=== PATIENT | female | born 1970 | race Caucasian/White ===

== ENCOUNTER 2017-06-27 15:56 | Emergency (ER) | payer MEDICAID, MEDICARE ==
[2017-06-27 16:27] VITALS: BP 124/87
--- NOTE | 2017-06-27 16:53 | UC ---
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 - History Of Current Complaint Chief Complaint: UCGeneralIllness Stated Complaint: CHEST CONGESTION,URINARY,FOOT & KNEE PAIN Time Seen by Provider: 06/27/17 16:18 Hx Obtained From: Patient Hx Last Menstrual Period: 01/01/14 ?: No Onset/Duration: Gradual Onset, Lasting Weeks, Still Present Timing: Constant Severity Initially: Moderate Severity Currently: Moderate Aggravating Factor(s): Nothing Alleviating Factor(s): Nothing - Allergies/Home Medications Allergies/Adverse Reactions: Allergies Allergy/AdvReac Type Severity Reaction Status Date / Time Sulfa Drugs Allergy Intermediate rapid Verified 06/27/17 16:28 heartbeat Gabapentin Allergy slowed Verified 06/27/17 16:28 responses Penicillins Allergy Unknown Verified 06/27/17 16:28 Reaction Details Green-coated pills AdvReac Vomiting, Uncoded 06/27/17 16:28 chills PMH/Surg Hx/FS Hx/Imm Hx Previously Healthy: No - 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 - Surgical History Surgical History: None - Family History Known Family History: Positive: None - Social History Occupation: Employed Full-time, Disabled Lives: Alone Alcohol Use: None Substance Use Type: None Smoking Status (MU): Light Every Day Tobacco Smoker Type: Cigarettes Amount Used/How Often: pt unsure Household Exposure Type: Cigarettes Review of Systems Constitutional: Negative Skin: Negative Eyes: Negative ENT: Sore Throat, Nasal Discharge, Sinus Congestion Respiratory: Cough Cardiovascular: Negative Gastrointestinal: Negative Genitourinary: Negative Motor: Negative Neurovascular: Negative Musculoskeletal: Arthralgia - knee and foot pain chronica Neurological: Negative Psychological: Negative Is Patient Immunocompromised?: No All Other Systems Reviewed And Are Negative: Yes Physical Exam Triage Information Reviewed: Yes Appearance: Well-Appearing, No Pain Distress, Well-Nourished Vital Signs: Initial Vital Signs Temp 98.4 F 06/27/17 16:19 Pulse 83 06/27/17 16:19 Resp 14 06/27/17 16:19 BP 124/87 06/27/17 16:19 Pulse Ox 98 06/27/17 16:19 Vital Signs Reviewed: Yes Eye Exam: Normal Eyes: Positive: Conjunctiva Clear ENT Exam: Normal ENT: Positive: Normal ENT inspection, Hearing grossly normal, Pharynx normal, Nasal congestion, TMs normal, Sinus tenderness, Uvula midline. Negative: Tonsillar swelling, Tonsillar exudate, Trismus, Muffled voice, Hoarse voice, Dental tenderness Dental Exam: Normal Neck exam: Normal Neck: Positive: Supple, Nontender, No Lymphadenopathy Respiratory Exam: Normal Respiratory: Positive: Chest non-tender, Lungs clear, Normal breath sounds, No respiratory distress, No accessory muscle use Cardiovascular Exam: Normal Cardiovascular: Positive: RRR, No Murmur, Pulses Normal, Brisk Capillary Refill Musculoskeletal Exam: Normal Musculoskeletal: Positive: Strength Intact, ROM Intact, No Edema Neurological Exam: Normal Neurological: Positive: Alert, Muscle Tone Normal Psychological Exam: Normal Skin Exam: Normal Complaint Female Dx - Course Course Of Treatment: work note until evaluated by orthopedic md, brooks haq follow with pcp this week - Differential Dx/Diagnosis Provider Diagnoses: Acute on chronic knee and foot pain, bronchitis, nicotine dependent Discharge - Discharge Plan Condition: Stable Disposition: HOME Prescriptions: Azithromycin TAB* [Zithromax TAB (Z-LENIN) 250 mg #6 tabs] 2 tab PO .TODAY, THEN 1 DAILY #1 lenin Fluticasone NASAL SPRAY 50MCG* [Flonase NASAL SPRAY 50MCG*] 2 spray BOTH NARES DAILY #1 btl Patient Education Materials: Sinusitis (ED) Forms: *Work Release Referrals: [facility] [place] [facility] [Outside] - 1 Week Marky THOMAS,Brayden Evans [Doctor of Podiatric Medicine] - As Soon As Possible
== END 2017-06-27 17:28 | disposition home or self-care (01) ==
LOC: UCCORT 15:56
DX: J40 Bronchitis, not specified as acute or chronic (principal); M79.673 Pain in unspecified foot; M25.569 Pain in unspecified knee; Z32.02 Encounter for pregnancy test, result negative; R09.81 Nasal congestion; J02.9 Acute pharyngitis, unspecified; G89.29 Other chronic pain; F17.210 Nicotine dependence, cigarettes, uncomplicated; Z88.2 Allergy status to sulfonamides; Z88.0 Allergy status to penicillin; Z88.8 Allergy status to other drugs, medicaments and biological substances
CPT/HCPCS: 81003; 84702; 99202; G0463

== ENCOUNTER 2017-07-08 11:48 | Emergency (ER) | payer MEDICARE ==
[2017-07-08 12:24] VITALS: BP 123/73
--- NOTE | 2017-07-08 13:05 | UC ---
Throat Pain/Nasal Chao HPI - HPI Summary HPI Summary: Pt c/o of nasal congestion and sinus pain and pressure. Also, c/o of bilateral ear "fullness" and itching - History of Current Complaint Chief Complaint: UCGeneralIllness Stated Complaint: EAR COMPLAINT Time Seen by Provider: 07/08/17 12:31 Hx Obtained From: Patient Hx Last Menstrual Period: 07/01/17 ?: No Onset/Duration: Gradual Onset, Lasting Days, Still Present Severity: Mild Pain Intensity: 0 Pain Scale Used: 0-10 Numeric Associated Signs & Symptoms: Positive: Sinus Discomfort - Epiglottits Risk Factors Epiglottis Risk Factors: Negative - Allergies/Home Medications Allergies/Adverse Reactions: Allergies Allergy/AdvReac Type Severity Reaction Status Date / Time Sulfa Drugs Allergy Intermediate rapid Verified 07/08/17 12:24 heartbeat Gabapentin Allergy slowed Verified 07/08/17 12:24 responses Penicillins Allergy Unknown Verified 07/08/17 12:24 Reaction Details Green-coated pills AdvReac Vomiting, Uncoded 07/08/17 12:24 chills Home Medications: Home Medications Pantoprazole TAB (NF) [Protonix TAB (NF)] 20 mg PO DAILY 07/08/17 [History Confirmed 07/08/17] ValACYclovir (*) [Valtrex 500 mg (*)] 500 mg PO DAILY 07/08/17 [History Confirmed 07/08/17] PMH/Surg Hx/FS Hx/Imm Hx Previously Healthy: Yes - Surgical History Surgical History: Yes Surgery Procedure, Year, and Place: toe surgery - Family History Known Family History: Positive: Cardiac Disease - Social History Occupation: Employed Full-time Lives: With Family Alcohol Use: None Substance Use Type: None Smoking Status (MU): Light Every Day Tobacco Smoker Type: Cigarettes Amount Used/How Often: pt unsure Have You Smoked in the Last Year: Yes Household Exposure Type: Cigarettes Review of Systems Constitutional: Negative Skin: Negative Eyes: Negative ENT: Ear Ache, Sinus Congestion, Sinus Pain/Tenderness Respiratory: Negative Cardiovascular: Negative Gastrointestinal: Negative Genitourinary: Negative Motor: Negative Neurovascular: Negative Musculoskeletal: Negative Neurological: Negative Psychological: Negative Is Patient Immunocompromised?: No All Other Systems Reviewed And Are Negative: Yes Physical Exam Triage Information Reviewed: Yes Appearance: Well-Appearing Vital Signs: Initial Vital Signs Temp 98 F 07/08/17 12:18 Pulse 83 07/08/17 12:18 Resp 16 07/08/17 12:18 BP 123/73 07/08/17 12:18 Pulse Ox 99 07/08/17 12:18 Vital Signs Reviewed: Yes Eye Exam: Normal ENT: Positive: Sinus tenderness Dental Exam: Normal Neck exam: Normal Respiratory Exam: Normal Cardiovascular Exam: Normal Abdominal Exam: Normal Musculoskeletal Exam: Normal Neurological Exam: Normal Psychological Exam: Normal Skin Exam: Normal Throat Pain/Nasal Course/Dx - Course Assessment/Plan: Pt reports that she has a history of chronic sinusitis. Pt requested a referral to DR. Best. - Differential Dx/Diagnosis Differential Diagnosis/HQI/PQRI: Otitis Media, Sinusitis, URI Provider Diagnoses: sinusitis Discharge - Discharge Plan Condition: Stable Disposition: HOME Prescriptions: DOXYcycline CAP(*) [DOXYcycline 100MG CAP(*)] 100 mg PO Q12H #14 cap Patient Education Materials: Sinusitis (ED) Referrals: [facility] [place] [facility] [Outside] Juan Best MD [Medical Doctor] - No Primary Care Phys,NOPCP [Primary Care Provider] - Additional Instructions: Please establish care with a local PCP as soon as possible. Additionally, we have provided a referral to an ENT specialist as you requested. You have requested that you be referred to Dr. Best.
== END 2017-07-08 12:55 | disposition home or self-care (01) ==
LOC: UCCORT 11:48
DX: J32.9 Chronic sinusitis, unspecified (principal); Z72.0 Tobacco use
CPT/HCPCS: 99212; G0463

== ENCOUNTER 2018-02-14 14:07 | Emergency (ER) | payer MEDICARE, OTHER ==
[2018-02-14 14:45] VITALS: BP 117/89
--- NOTE | 2018-02-14 14:52 | UC ---
Nausea/Vomiting/Diarrhea HPI - HPI Summary HPI Summary: 47 y/o female presents to the urgent care c/o NAUSEA , DIARRHEA FOR THREE DAYS. 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 SHE STATES THEY WERE NOT COOKED PROPERLY. ALSO C/O EAR PAIN , CHEST AND SINUS CONGESTION. PT SEEMS SOMEWHAT DISORIENTED AND SLOW TO ANSWER QUESTIONS - History of Current Complaint Chief Complaint: UCGeneralIllness Stated Complaint: WC - DIARRHEA,NAUSEA,STOMACH ACHE Time Seen by Provider: 02/14/18 14:50 Hx Obtained From: Patient Hx Last Menstrual Period: 02/13/18 ?: No Pain Intensity: 8 - Allergies/Home Medications Allergies/Adverse Reactions: Allergies Allergy/AdvReac Type Severity Reaction Status Date / Time gabapentin Allergy Unknown slowed Verified 02/14/18 15:14 responses Penicillins Allergy Unknown Unknown Verified 02/14/18 15:14 Reaction Details Sulfa (Sulfonamide Allergy rapid Verified 02/14/18 15:14 Antibiotics) heartbeat Green-coated pills AdvReac Vomiting, Uncoded 02/14/18 15:14 chills Home Medications: Home Medications Diclofenac Sodium 75 mg PO BID 02/14/18 [History Confirmed 02/14/18] PMH/Surg Hx/FS Hx/Imm Hx - Surgical History Surgical History: Yes Surgery Procedure, Year, and Place: toe surgery - Family History Known Family History: Positive: Cardiac Disease - Social History Alcohol Use: None Substance Use Type: None Smoking Status (MU): Former Smoker Type: Cigarettes Amount Used/How Often: pt unsure Have You Smoked in the Last Year: Yes Household Exposure Type: Cigarettes Physical Exam Vital Signs: Initial Vital Signs Temp 99.1 F 02/14/18 14:34 Pulse 88 02/14/18 14:34 Resp 18 02/14/18 14:34 BP 117/89 02/14/18 14:34 Pulse Ox 99 02/14/18 14:34 Naus/Vom/Diarrhea Course/Dx - Differential Dx/Diagnosis Differential Diagnoses - Female: Appendicitis, Gastroenteritis (Viral), Gastroenteritis (Bacterial), Vomiting, Diarrhea, Colitis, Dehydration Provider Diagnoses: 1- Acute gastroenteritis. 2- Nausea. 3- Acute Diarrhea. 4 -Acute bacterial sinusitis Condition At Discharge: Stable Discharge - Discharge Plan Condition: Stable Disposition: HOME Prescriptions: DOXYcycline CAP(*) [DOXYcycline 100MG CAP(*)] 100 mg PO BID #20 cap Fluticasone NASAL SPRAY 50MCG* [Flonase NASAL SPRAY 50MCG*] 2 spray BOTH NARES DAILY #1 btl Loperamide CAP* [Imodium CAP*] 2 mg PO Q4H PRN #12 cap PRN Reason: Diarrhea Ondansetron ODT TAB* [Zofran 4 MG Odt TAB*] 4 mg PO Q6H PRN #12 tab.odt PRN Reason: Nausea Patient Education Materials: Sinusitis (ED), Gastroenteritis (ED) Ref[place]: [facility] [place] [facility] [place]Outside] - 3 Days Additional Instructions: 1- Please increase fluid intake w/ Gatorade or Pedialyte OTC. Eat small portions of foot or soft meals. 2-TAke Zofran PO as directed to alleviate Nausea. 3-Take Loperamide PO as directed to alleviate Diarrhea. Please collect stool before start taking Medications and bring it back to the clinic for Stool culture. 4- If he develops fever or abdominal pain w/ recurrent episodes of diarrhea please take your child to the ER, otherwise f/u with your PCP if diarrhea not resolving in 2-3 days 5- Please take full course of Doxycycline PO to alleviate your sinusitis 6-Use Flonase as directed to help drain fluid. Also buy saline drops to clear sinuses 7-PLease F/u w/ ENT DR Agrawal for further evaluation and treatment of your recurrent sinusitis and decrease hearing - Billing Disposition and Condition Condition: STABLE Disposition: Home
[2018-02-14] MEDS ORDERED: Ondansetron ODT TAB* 4 MG PO ONE (15:07)
[2018-02-14] MEDS ORDERED: Ondansetron ODT TAB* 4 MG ONE (15:16)
== END 2018-02-14 15:44 | disposition home or self-care (01) ==
LOC: UCCORT 14:07
DX: K52.9 Noninfective gastroenteritis and colitis, unspecified (principal); R11.0 Nausea; R19.7 Diarrhea, unspecified; J01.90 Acute sinusitis, unspecified; B96.89 Other specified bacterial agents as the cause of diseases classified elsewhere; Z88.0 Allergy status to penicillin; Z88.8 Allergy status to other drugs, medicaments and biological substances; Z88.1 Allergy status to other antibiotic agents; Z87.891 Personal history of nicotine dependence
CPT/HCPCS: 81003; 87077; 87086; 99212; A9270-GY; G0463

== ENCOUNTER 2018-06-15 10:14 | Emergency (ER) | payer MEDICARE, MEDICAID ==
[2018-06-15 10:35] VITALS: BP 117/65
--- NOTE | 2018-06-15 10:57 | ED ---
Throat Pain/Nasal Congestion - HPI Summary HPI Summary: 48 yr old female with the complaint of right side sinus pressure, ear pain, yellow post nasal drip, cough. Symptoms persisting for a month. she has sinus infection history. She finished a course of Augmentin but it did not help. She says Augmentin usually clears her issues up. She reports moderate symptoms. Denies SOB, fever, chills. - History of Current Complaint Chief Complaint: UCGeneralIllness Time Seen by Provider: 06/15/18 10:43 - Allergies/Home Medications Allergies/Adverse Reactions: Allergies Allergy/AdvReac Type Severity Reaction Status Date / Time gabapentin Allergy Unknown slowed Verified 02/14/18 15:14 responses Penicillins Allergy Unknown Unknown Verified 02/14/18 15:14 Reaction Details Sulfa (Sulfonamide Allergy rapid Verified 02/14/18 15:14 Antibiotics) heartbeat Green-coated pills AdvReac Vomiting, Uncoded 02/14/18 15:14 chills Home Medications: Home Medications Dextromethorphan Polistirex [Cough Dm ER] 1 dose PO DAILY 06/15/18 [History Confirmed 06/15/18] raNITIdine HCl [Ranitidine HCl] 1 each PO DAILY 06/15/18 [History Confirmed ] PMH/Surg Hx/FS Hx/Imm Hx Endocrine/Hematology History: Denies: Hx Diabetes Cardiovascular History: Reports: Hx Hypertension - PRE Respiratory History: Reports: Hx Asthma - Cancer History Cancer Type, Location and Year: BREAST POSSIBLY - Surgical History Surgery Procedure, Year, and Place: toe surgery. LEFT BREAST BIOPSY Infectious Disease History: No Infectious Disease History: Reports: Hx Shingles, History Other Infectious Disease - SCABBIES Denies: Traveled Outside the [place] in Last 30 Days - Family History Known Family History: Positive: Cardiac Disease - Social History Alcohol Use: None Substance Use Type: Reports: None Smoking Status (MU): Former Smoker Type: Cigarettes Amount Used/How Often: pt unsure Have You Smoked in the Last Year: Yes Review of Systems Constitutional: Negative Positive: Ear Ache, Nasal Discharge All Other Systems Reviewed And Are Negative: Yes Physical Exam Triage Information Reviewed: Yes Vital Signs On Initial Exam: Initial Vitals Temp Pulse Resp BP Pulse Ox 97.7 F 82 15 117/65 99 06/15/18 10:31 06/15/18 10:31 06/15/18 10:31 12/17/18 10:31 06/15/18 10:31 Vital Signs Reviewed: Yes Appearance: Positive: Well-Appearing, No Pain Distress Skin: Positive: Warm, Skin Color Reflects Adequate Perfusion Head/Face: Positive: Normal Head/Face Inspection Eyes: Positive: EOMI ENT: Positive: Pharynx normal, Nasal congestion, Nasal drainage, TMs normal - both TM with retraction., Sinus tenderness, Uvula midline Neck: Positive: Supple, Nontender Respiratory/Lung Sounds: Positive: Clear to Auscultation, Breath Sounds Present Cardiovascular: Positive: RRR. Negative: Murmur Abdomen Description: Negative: Distended Musculoskeletal: Positive: Strength/ROM Intact Neurological: Positive: Sensory/Motor Intact, Alert, Oriented to Person Place, Time, CN Intact II-III, Normal Gait, Speech Normal Psychiatric: Positive: Normal - [place] Coma Scale Best Eye Response: 4 - Spontaneous Best Motor Response: 6 - Obeys Commands Best Verbal Response: 5 - Oriented Coma Scale Total: 15 Diagnostics - Vital Signs Vital Signs Temp Pulse Resp BP Pulse Ox 06/15/18 10:31 97.7 F 82 15 117/65 99 - Laboratory Lab Statement: Any lab studies that have been ordered have been reviewed, and results considered in the medical decision making process. EENT Course/Dx - Course Course Of Treatment: 48 yr old with sinusitis. Rx with Biaxin. - Diagnoses Provider Diagnoses: Sinusitis Discharge - Sign-Out/Discharge Documenting (check all that apply): Patient Departure All imaging exams completed and their final reports reviewed: No Studies - Discharge Plan Condition: Good Disposition: HOME Prescriptions: Clarithromycin TAB* [Biaxin 500 MG TAB*] 500 mg PO BID #20 tab Patient Education Materials: Sinusitis (ED) Referrals: Sonya Lawson NP [Primary Care Provider] - 2 Days - Billing Disposition and Condition Condition: GOOD Disposition: Home
== END 2018-06-15 11:03 | disposition home or self-care (01) ==
LOC: UCCORT 10:14
DX: J32.9 Chronic sinusitis, unspecified (principal); Z88.0 Allergy status to penicillin; Z88.2 Allergy status to sulfonamides; Z88.8 Allergy status to other drugs, medicaments and biological substances; I10 Essential (primary) hypertension; F17.210 Nicotine dependence, cigarettes, uncomplicated
CPT/HCPCS: 99212; G0463

== ENCOUNTER 2018-10-09 12:54 | Emergency (ER) | payer MEDICARE, MEDICAID ==
[2018-10-09 13:38] VITALS: BP 126/91
--- NOTE | 2018-10-09 14:18 | UC ---
Throat Pain/Nasal Chao HPI - HPI Summary HPI Summary: 48 yo female with 1-2 m hx of sinus pressure and pain as well as left otalgia no f/c also with chronic abd pain and anemia states she sees a specialist and is supposed to have an upper and lower scope no wt change chronic pruritis wants stool checked for parasites - History of Current Complaint Chief Complaint: UCEar Stated Complaint: SINUSES,EARS,SORE THROAT Time Seen by Provider: 10/09/18 13:19 Hx Obtained From: Patient Hx Last Menstrual Period: 3 days ago Onset/Duration: Gradual Onset, Lasting Weeks Severity: Mild Pain Intensity: 4 Pain Scale Used: 0-10 Numeric Cough: Nonproductive Associated Signs & Symptoms: Positive: Sinus Discomfort - Epiglottits Risk Factors Epiglottis Risk Factors: Negative - Allergies/Home Medications Allergies/Adverse Reactions: Allergies Allergy/AdvReac Type Severity Reaction Status Date / Time gabapentin Allergy Unknown slowed Verified 10/09/18 13:38 responses Penicillins Allergy Unknown Unknown Verified 10/09/18 13:38 Reaction Details Sulfa (Sulfonamide Allergy rapid Verified 10/09/18 13:38 Antibiotics) heartbeat clarithromycin Allergy Wheezing Uncoded 10/09/18 13:48 Green-coated pills AdvReac Vomiting, Uncoded 10/09/18 13:38 chills Home Medications: Home Medications Natural Remedies 1 dose PO AC 10/09/18 [History Confirmed 10/09/18] PMH/Surg Hx/FS Hx/Imm Hx Previously Healthy: Yes - Surgical History Surgical History: Yes Surgery Procedure, Year, and Place: toe surgery. LEFT BREAST BIOPSY - Family History Known Family History: Positive: Cardiac Disease, Hypertension, Diabetes - Social History Alcohol Use: None Substance Use Type: None Smoking Status (MU): Former Smoker Type: Cigarettes Amount Used/How Often: pt unsure Have You Smoked in the Last Year: Yes Household Exposure Type: Cigarettes Review of Systems All Other Systems Reviewed And Are Negative: Yes Constitutional: Positive: Fatigue Skin: Positive: Negative Eyes: Positive: Negative ENT: Positive: Ear Ache, Sinus Congestion, Sinus Pain/Tenderness Respiratory: Positive: Cough - rare Cardiovascular: Positive: Negative Gastrointestinal: Positive: Abdominal Pain - x 2 yrs Genitourinary: Positive: Negative Motor: Positive: Negative Neurovascular: Positive: Negative Musculoskeletal: Positive: Negative Neurological: Positive: Negative Psychological: Positive: Negative Physical Exam Triage Information Reviewed: Yes Appearance: Well-Appearing, No Pain Distress, Well-Nourished Vital Signs: Initial Vital Signs Temp 98.8 F 10/09/18 13:23 Pulse 81 10/09/18 13:23 Resp 27 10/09/18 13:23 BP 126/91 10/09/18 13:23 Pulse Ox 100 10/09/18 13:23 Vital Signs Reviewed: Yes Eyes: Positive: Conjunctiva Clear ENT: Positive: Hearing grossly normal, Nasal congestion, TMs normal. Negative: Nasal drainage, Tonsillar swelling, Tonsillar exudate, Trismus, Muffled voice, Dental tenderness Dental Exam: Normal Neck: Positive: Supple, Nontender, No Lymphadenopathy Respiratory: Positive: Lungs clear, Normal breath sounds, No respiratory distress, No accessory muscle use Cardiovascular: Positive: RRR, No Murmur Abdomen Description: Positive: Soft. Negative: Nontender - tender RUQ, CVA Tenderness (R), CVA Tenderness (L), Distended, Guarding, Hernia @, Hepatomegaly , McBurney's Point Tenderness, Peritoneal Signs, Pulsatile Mass, Splenomegaly Bowel Sounds: Positive: Present Musculoskeletal: Positive: ROM Intact, No Edema Neurological: Positive: Alert Psychological Exam: Normal Skin Exam: Normal - no rash Throat Pain/Nasal Course/Dx - Differential Dx/Diagnosis Provider Diagnosis: Chronic abdominal pain, Sinusitis, Itchy skin Discharge - Sign-Out/Discharge Documenting (check all that apply): Patient Departure All imaging exams completed and their final reports reviewed: No Studies - Discharge Plan Condition: Stable Disposition: HOME Prescriptions: Amoxicillin/Clavulanate TAB* [Augmentin TAB 875*] 875 mg PO BID #14 tab Fluticasone NASAL SPRAY 50MCG* [Flonase NASAL SPRAY 50MCG*] 2 spray BOTH NARES BID #1 btl Patient Education Materials: Sinusitis (ED), Itchy Skin (ED), Chronic Abdominal Pain (ED) Forms: *Work Release Referrals: Sonya Lawson NP [Primary Care Provider] - As Soon As Possible Additional Instructions: bring in stool for studies SARNA anti-itch lotion (OTC) I suggest you follow up with your gi specialist about you abd pain I suggest you see your provider about you itchy skin and BP 126/93 - Billing Disposition and Condition Condition: STABLE Disposition: Home
== END 2018-10-09 14:35 | disposition home or self-care (01) ==
LOC: UCCORT 12:54
DX: J32.9 Chronic sinusitis, unspecified (principal); R10.9 Unspecified abdominal pain; L29.9 Pruritus, unspecified; D64.9 Anemia, unspecified; Z88.0 Allergy status to penicillin; Z88.2 Allergy status to sulfonamides; Z88.8 Allergy status to other drugs, medicaments and biological substances; Z87.891 Personal history of nicotine dependence
CPT/HCPCS: 99212; G0463

== ENCOUNTER 2018-10-31 08:55 | Emergency (ER) | payer MEDICARE, MEDICAID ==
--- OUTSIDE RECORDS SUMMARY | 2018-10-31 09:08 | XMS REPORT | Continuity of Care Document ---
:1970 External Reference #:[id number] Author Name Selene Gurrola, [facility] Address [address] [place] [address] Care Team Providers Name Role Phone Sonya Lawson FNP Care Team Information Asset Accountant Unavailable Sonya Lawson FNP Primary Care Physician Unavailable Payers Date Identification Numbers Payment Provider Subscriber Policy Number: [id number] [employer] Deb Murrayrano PayID: [id number] [address] [place] [address] Policy Number: [id number] Medicaid Deb Wills Soprano PayID: [id number] [address] [place] [address] Expires: 2018 Policy Number: [id number] [facility] Deb Wills Soprano PayID: [id number] [address] [place] [address] Advance Directives Description No Information Available Problems Active Problems Provider Date Pain of breast Gal Castanon MD Onset: 01/09/2012 Note: right side Family History Date Family Member(s) Observation Comments General Pancreatic Cancer on fathers side- unsure of other cancers General Skin Cancer on mothers side- unsure of other cancers General Diabetes Father Hypertension Father due to Pancreatic () Cancer Mother Anemia Mother Diabetes Mellitus Type 2 Paternal Grandfather due to Cancer () - digestive Aunt due to Lung Cancer () Social History Type Date Description Comments Sex Unknown Marital Status Single Lives With Alone Diet Patient follows no dietary restrictions Sleep Reports continuity disturbances Sleep Typically sleeps 7 hours a night Smoke-Free Home is smoke-free Pets None 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 Tobacco Use Start: Unknown Quit End: Unknown Smoking Status Reviewed: Quit 09/22/18 ETOH Use Rarely consumes alcohol Tobacco Use Start: Unknown Patient is a former used to occ smoke End: Unknown smoker Recreational Drug Use Denies Drug Use Exercise Type/Frequency Exercises rarely Walking or jogging or swimming Currently Active Patient is currently not sexually active Allergies, Adverse Reactions, Alerts Active Allergies Reaction Severity Comments Date Sulfa Drugs Antibiotics 12/31/2011 Gabapentin 12/31/2011 Amitriptin 12/31/2011 [place] 12/31/2011 Medications Active Medications SIG Qnty Indications Ordering Date Provider Citroma drink 1 bottle at 12pm 296ml Z80.0 Faviola, 09/01/2018 (noon)the day before MD Dylan 1.745GM/30ML the procedure Solution Dulcolax 4 tablets taken a 8pm 4tabs Z80.0 Faviola, 09/01/2018 5mg the day before the MD Dylan Tablets DR procedure Golytely drink half the evening 4000ml Z80.0 Faviola, 09/01/2018 236gm before and half the MD Dylan Solution Rec morning of the procedure (1 cup every 10') Ranitidine 150 Take 1 tablet by mouth 60tabs Sonya Lawson, 05/26/2018 Maximum Strength 2 times per day for STOCK PREPARATION OPERATOR gastroesophageal reflux 150mg Tablets disease Valacyclovir HCL Take 1 pill twice daily 20tabs Sonya Lawson, 05/26/2018 at first sign of a STOCK PREPARATION OPERATOR 1gm Tablets lesion and for the next 10 days. Benzonatate Take 1 capsule by mouth 30caps Sonya Lawson, 100mg every 8 hours as needed STOCK PREPARATION OPERATOR Capsules for cough. Robitussin 12 Hour 10 milliliters by mouth Unknown Cough Relief twice a day as needed 30mg/5ML Suer History Medications Saline Nasal [place] 2 sprays per 44ml J32.9 Sonya Lawson, 07/01/2018 - 0.65% nostril 2x/day for STOCK PREPARATION OPERATOR 09/01/2018 Solution nasal congestion. Guaifenesin Take 15 ml by mouth 400ml Sonya Lawson, 06/11/2018 - 300mg/15ML every 4 hours as STOCK PREPARATION OPERATOR 07/01/2018 Solution needed for chest congestion Tessalon Perles take 1 capsule up 30caps Sonya Lawson, 06/05/2018 - 100mg to 3 times per day STOCK PREPARATION OPERATOR 06/11/2018 Capsules as needed for cough. Robitussin 12 Hour Take 5-10ml every 89ml J06.9 Sonya Lawson, 05/26/2018 - Cough Relief 12 hours as needed STOCK PREPARATION OPERATOR 06/11/2018 30mg/5ML for cough. Suer Amoxicillin/Clavulanat take 1 tablet by 14tabs J06.9 Sonya Lawson, 2017 - e Potassium mouth every 12 STOCK PREPARATION OPERATOR 07/01/2018 875-125mg hours for 7 days Tablets for infection. No Active Medications Unknown 11/17/2014 - 11/17/2014 Nabumetone take 1 tablet by 60tabs Omari Khan, 11/17/2014 - 500mg Tablets mouth 2 times a day M.D. 05/26/2018 with food Topiramate 50mg in the Am, Unknown - 50mg Tablets 100mg hs 11/17/2014 Meloxicam 1 daily Unknown - 15mg Tablets 11/17/2014 Tylenol PM Extra po prn 90tabs Unknown - Strength Unknown 500-25mg Tablets Evening [place] Oil 1 by mouth three Lambert, - times a day Calixto Nolen Unknown 1000mg Capsules Ibuprofen 1 po q6h prn for 30tabs Unknown - 800mg Tablets pain use as first 11/17/2014 line pain control Extra Action Cough TK 5 ML PO Q 6 H Unknown - prn FPR Cough 06/11/2018 100-10mg/5ML Syrup Clarithromycin TK 1 T PO bid Unknown - 500mg 07/01/2018 Tablets Medications Administered in Office Medication SIG Qnty Indications Ordering Provider Date Depomedrol 40mg/1cc [facility] (methylprednisolone acetate) Injection Betamethasone Acetate & [facility], [facility] 10/23/2018 Sodium Phosphate 3 MG Of Each Injection Depomedrol 40mg/1cc Selene Gurrola, [facility] 12/07/2014 (methylprednisolone acetate) Injection Immunizations CPT Code Status Date Vaccine Lot # [id number] Given 05/26/2018 Influenza Virus Vaccine, Quadrivalent, 36 Mos+, [id number] .[id number] Vital Signs Date Vital Result Comment 10/23/2018 1:13pm BP Systolic 127 mmHg BP Diastolic 87 mmHg Body Temperature 98.2 F Height 61 inches 5'1" Weight 175.00 lb BMI (Body Mass Index) 33.1 kg/m2 BSA (Body Surface Area) 1.78 m2 [place] body weight in kilograms 48 kg O2 % BldC Oximetry 95 % 09/22/2018 9:25am BP Systolic Sitting Left Arm 118 mmHg BP Diastolic Sitting Left Arm 72 mmHg Heart Rate 82 /min Respiratory Rate 18 /min Height 60.75 inches 5'0.75" Weight 175.00 lb BMI (Body Mass Index) 33.3 kg/m2 BSA (Body Surface Area) 1.78 m2 [place] body weight in kilograms 47 kg 09/01/2018 4:55pm BP Systolic Sitting Left Arm 101 mmHg BP Diastolic Sitting Left Arm 76 mmHg Heart Rate 74 /min Respiratory Rate 18 /min Height 60.75 inches 5'0.75" Weight 175.00 lb BMI (Body Mass Index) 33.3 kg/m2 BSA (Body Surface Area) 1.78 m2 [place] body weight in kilograms 47 kg O2 % BldC Oximetry 96 % 07/01/2018 1:56pm BP Systolic 104 mmHg BP Diastolic 68 mmHg Body Temperature 98.0 F Heart Rate 84 /min Respiratory Rate 18 /min Height 60.75 inches 5'0.75" Weight 178.00 lb BMI (Body Mass Index) 33.9 kg/m2 BSA (Body Surface Area) 1.79 m2 [place] body weight in kilograms 47 kg O2 % BldC Oximetry 96 % 05/26/2018 12:55pm BP Systolic Sitting Left Arm 114 mmHg BP Diastolic Sitting Left Arm 72 mmHg Body Temperature 98.7 F Heart Rate 71 /min Height 60.75 inches 5'0.75" Weight 176.00 lb BMI (Body Mass Index) 33.5 kg/m2 BSA (Body Surface Area) 1.78 m2 [place] body weight in kilograms 47 kg O2 % BldC Oximetry 97 % 11/17/2014 1:37pm BP Systolic Sitting Right Arm 123 mmHg BP Diastolic Sitting Right Arm 86 mmHg Heart Rate 91 /min Height 60 inches 5'0" Weight 168.00 lb BMI (Body Mass Index) 32.8 kg/m2 BSA (Body Surface Area) 1.73 m2 04/22/2012 1:40pm BP Systolic Sitting Left Arm 115 mmHg BP Diastolic Sitting Left Arm 81 mmHg Heart Rate 64 /min Height 60.75 inches 5'0.75" Weight 159.00 lb BMI (Body Mass Index) 30.3 kg/m2 BSA (Body Surface Area) 1.71 m2 01/09/2012 10:36am BP Systolic Sitting Left Arm 114 mmHg BP Diastolic Sitting Left Arm 76 mmHg Heart Rate 60 /min Height 60.75 inches 5'0.75" Weight 165.00 lb BMI (Body Mass Index) 31.4 kg/m2 BSA (Body Surface Area) 1.74 m2 Results Test Date Facility Test Result H/L Range Note Laboratory test 09/28/2018 [facility] Amylase <pending> 1 [address] [place] [address] [phone] Lipase <pending> Pancreatic Elastase (Pe-1) > 500.0 ug/g >200 2 Laboratory test 09/24/2018 [facility] C1 Esterase <pending> finding [address] [facility] [place] [address] [phone] C1 Esterase Inhibit Total <pending> Porphobilinogen,QN,Random Urin 0.6 mg/L 0.0-2.0 3 Ala,Delta,Random Urine 6.5 mg/L High 0.0-5.4 4 Laboratory test 09/24/2018 [facility] C4 Function <pending> 5 finding [address] [place] [address] [phone] Comprehensive 09/24/2018 [facility] Glucose 71 mg/dL Low 74-106 Metabolic Panel [address] [place] [address] [phone] BUN 19 mg/dL High 7-18 Creatinine 0.8 mg/dL N 0.6-1.3 Glom Filtration Rate, Estimate >60 mL/min >60 If >60 mL/min >60 6 BUN/Creat 23.7 ratio Sodium 138 mmol/L N 136-145 Potassium 3.7 mmol/L N 3.5-5.1 Chloride 106 mmol/L N 98-107 Carbon Dioxide 27 mmol/L N 21-32 Anion Gap 5 mEq/L Low 8-16 Calcium 9.1 mg/dL N 8.5-10.1 Total Protein 7.8 g/dL N 6.4-8.2 Albumin 3.6 g/dL N 3.4-5.0 Globulin 4.2 g/dL N 1.9-4.3 Alb/Glob 0.9 ratio Bilirubin,Total 0.7 mg/dL N 0.2-1.0 Sgot/Ast 17 U/L N 15-37 SGPT/Alt 34 U/L N 12-78 Alkaline Phosphatase 105 U/L N 45-117 Laboratory test finding 09/24/2018 [facility] Amylase 161 U/L High 25-115 7 [address] [place] [address] [phone] Lipase 1128 U/L High 56-289 8 LDL Cholesterol Profile 09/24/2018 [facility] Cholesterol 181 mg/dL <200 9 [address] [place] [address] [phone] Triglycerides 91 mg/dL <150 10 HDL Cholesterol 55 mg/dL >40 11 LDL-Cholesterol 108 mg/dL < 100 12 Laboratory test 09/24/2018 [facility] Complement C4, 34 mg/dL 14-44 finding [address] [place] [address] [phone] C1 Esterase Inhibitor 22 mg/dL 21-39 C1 Esterase Inhibitor Function 94 %meanno . 13 Basic Metabolic Panel 08/12/2018 [facility] Glucose 90 mg/dL N 74-106 14 [address] [place] [address] [phone] BUN 16 mg/dL N 7-18 Creatinine 1.0 mg/dL N 0.6-1.3 Glom Filtration Rate, Estimate >60 mL/min >60 If >60 mL/min >60 15 BUN/Creat 16.0 ratio Sodium 141 mmol/L N 136-145 Potassium 3.8 mmol/L N 3.5-5.1 Chloride 107 mmol/L N 98-107 Carbon Dioxide 28 mmol/L N 21-32 Anion Gap 6 mEq/L Low 8-16 Calcium 8.5 mg/dL N 8.5-10.1 Laboratory test 07/01/2018 [facility] [address] Thyroid Stim 1.52 uIU/mL N 0.30-4.20 16 finding [address] [place], [place] [address] [phone] 1 R93.3, R10.11 2 INFCE Result Units: ug Elast./g Severe Pancreatic Insufficiency: <100 Moderate Pancreatic Insufficiency: 100 - 200 Normal: >200 Performed at: [address] [id number] Refractory Tile Helper: Waylon Vigil MD, Phone: [phone] 3 This test was developed and its performance characteristics determined by [facility]. It has not been cleared or approved by the Food and Drug Administration. 4 This test was developed and its performance characteristics determined by [facility]. It has not been cleared or approved by the Food and Drug Administration. Performed at: - [facility] [id number] Refractory Tile Helper: Waylon Vigil MD, Phone: [phone] 5 R10.11 6 Note: Persistent reduction for 3 months or more in an eGFR <60 mL/min/1.73 m2 defines CKD. Patients with eGFR values >/=60 mL/min/1.73 m2 may also have CKD if evidence of persistent proteinuria is present. The original MDRD equation for estimated GFR is not valid for patients less than 18 years of age. Additional information may be found at www.kdoqi.org. 7 [place] [address]/24/18 by [email or web address] 8 [place] [address]/24/18 by LAB.[email or web address] 9 Reference Guidelines*: Desirable: ........... < 200 mg/dL Borderline High: ..... 200-239 mg/dL High: ................ >=240 mg/dL * The National Cholesterol Education Program (NCEP) 10 Reference Guidelines*: Normal: ............. < 150 mg/dL Borderline High: .... 150-199 mg/dL High: ............... 200-499 mg/dL Very High: .......... > 500 mg/dL * Source: National Cholesterol Education Program (NCEP) 11 Reference Guidelines*: Low HDL: ..... < 40 mg/dL Normal: ..... 40-60 mg/dL Desirable: ... > 60 mg/dL *The National Cholesterol Education Program(NCEP) 12 Reference Guidelines*: Optimal:........... <100 mg/dL Near Optimal....... 100-129 mg/dL Borderline High.... 130-159 mg/dL High............... 160-189 mg/dL Very High.......... >=190 mg/dL * Source: National Cholesterol Education Program (NCEP) 13 INFCE Result Units: %mean normal Abnormal <41 Equivocal 41 - 67 Normal >67 Performed at: - [facility] [address] [id number] Refractory Tile Helper: Whitney Jerome MD, Phone: [phone] Performed at: - [facility] [address] [id number] Refractory Tile Helper: Waylon Vigil MD, Phone: [phone] 14 R10.11 RIGHT UPEPR QUAD PAIN 15 Note: Persistent reduction for 3 months or more in an eGFR <60 mL/min/1.73 m2 defines CKD. Patients with eGFR values >/=60 mL/min/1.73 m2 may also have CKD if evidence of persistent proteinuria is present. The original MDRD equation for estimated GFR is not valid for patients less than 18 years of age. Additional information may be found at www.kdoqi.org. 16 R63.5 Procedures Date Code Description Status 10/23/2018 31571 Radiology, Foot, Complete-3 Views Completed 10/23/2018 69376 Radiology, Knee 3 Views Completed 10/23/201873980 Asp./Injection major joint Completed 10/23/201810833 Aspiration/Injection joint Completed intermediate(wrist/ankle/elbow/olbursa 06/30/2017 [id number] Mammogram Completed 12/07/201466418 Injection:Tendon Sheath,Lig. Cyst Completed 11/17/2014 64442 Radiology, Foot, Complete-3 Views Completed 11/17/2014 18199 Radiology, Foot, Complete-3 Views Completed 06/16/2012 23644 EKG Interpretation And Report Only Completed 01/08/2012 [id number] Mammogram Completed 11/16/2010 [id number] Mammogram Completed Encounters Type Date Location Provider Dx Diagnosis Office Visit 10/23/2018 Orthopaedic Office Selene Gurrola M72.2 Plantar fascial 1:30p SUSAN Evans fibromatosis M25.562 Pain in left knee M17.12 Unilateral primary osteoarthritis, left knee M25.572 Pain in left ankle and joints of left foot Office Visit 09/22/2018 Family [place], L30.9 Dermatitis, 10:00a Medicine Arnold OUMOU Bucio unspecified RD D48.5 Neoplasm of uncertain behavior of skin Office Visit 09/01/2018 4:45p Dylan Salmeron MD R93.3 Abnormal findings on dx imaging of prt digestive tract R10.11 Right upper quadrant pain Z80.0 Family history of malignant neoplasm of digestive organs Office Visit 07/01/2018 2:00p [facility] Sonya Lawson, R63.[address] STOCK PREPARATION OPERATOR gain R05 Cough K21.9 Gastro-esophageal reflux disease without esophagitis J32.9 Chronic sinusitis, unspecified R10.11 Right upper quadrant pain Office Visit 12/07/2014 10:00a Orthopaedic Office Selene Gurrola 719.47 Pain Joint S., [facility] Ankle & Foot 728.71 Fibromatosis Plantar Fascia Office Visit 11/17/2014 2:15p Orthopaedic Office Selene Gurrola 719.47 Pain Joint S., [facility] Ankle & Foot 715.17 Osteoarthrosis Localized Prim Ankle & Foot Office Visit 10/22/2012 10:00a Surgical Office Callum Panchal MD 611.71 Mastodynia Office Visit 04/22/2012 11:00a Surgical Office Callum Panchal MD 611.71 Mastodynia Office Visit 01/09/2012 10:15a Surgical Office Gal Castanon MD 611.71 Mastodynia 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 Separate notes were dictated. I suggested ice to theknee and foot as needed. She may be more sore initially and should take Tylenol or ibuprofen. I will see her back in four weeks, sooner with any problems or concerns.
--- OUTSIDE RECORDS SUMMARY | 2018-10-31 09:08 | XMS REPORT | Continuity of Care Document ---
:1970 External Reference #:[id number] Author Name Selene Gurrola, [facility] Address [address] [place] [address] Care Team Providers Name Role Phone Sonya Lawson FNP Care Team Information Auto Brake Technician Unavailable Sonya Lawson FNP Primary Care Physician Unavailable Payers Date Identification Numbers Payment Provider Subscriber Policy Number: [id number] [employer] Deb Murrayrano PayID: [id number] [address] [place] [address] Policy Number: [id number] Medicaid Deb Wills Soprano PayID: [id number] [address] [place] [address] Expires: 2018 Policy Number: [id number] [facility] Deb Wills Soprano PayID: [id number] [address] [place] [address] Advance Directives Description No Information Available Problems [...] Home is smoke-free Pets None 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 Benzonatate Take 1 capsule by mouth 30caps Sonya Lawson, 100mg every 8 hours as needed ACADEMIC SERVICES COORDINATOR Capsules for cough. Robitussin 12 Hour 10 milliliters by mouth Unknown Cough Relief twice a day as needed 30mg/5ML Suer History Medications Saline Nasal [place] 2 sprays per 44ml J32.9 Sonya Lawson, 07/01/2018 - 0.65% nostril 2x/day for ACADEMIC SERVICES COORDINATOR 09/01/2018 Solution nasal congestion. Guaifenesin Take 15 ml by mouth 400ml Sonya Lawson, 06/11/2018 - 300mg/15ML every 4 hours as ACADEMIC SERVICES COORDINATOR 07/01/2018 Solution needed for chest congestion Tessalon Perles take 1 capsule up 30caps Sonya Lawson, 06/05/2018 - 100mg to 3 times per day ACADEMIC SERVICES COORDINATOR 06/11/2018 Capsules as needed for cough. Robitussin 12 Hour Take 5-10ml every 89ml J06.9 Sonya Lawson, 05/26/2018 - Cough Relief 12 hours as needed ACADEMIC SERVICES COORDINATOR 06/11/2018 30mg/5ML for cough. Suer Amoxicillin/Clavulanat take 1 tablet by 14tabs J06.9 Sonya Lawson, 2017 - e Potassium mouth every 12 ACADEMIC SERVICES COORDINATOR 07/01/2018 875-125mg hours for 7 days Tablets [...] Unknown - Strength Unknown 500-25mg Tablets Evening [place] Oil 1 by mouth three [place], - [...] Indications Ordering Provider Date [facility] 40[facility]1cc [facility] (methylprednisolone acetate) Injection Depomedrol 40mg/1cc Selene Gurrola, [facility] 12/07/2014 (methylprednisolone acetate) Injection Immunizations CPT Code Status Date Vaccine Lot # [id number] Given 05/26/2018 Influenza Virus Vaccine, Quadrivalent, 36 Mos+, [id number] .[id number] Vital Signs Date Vital Result Comment 10/23/2018 1:13pm BP Systolic 127 mmHg BP Diastolic 87 mmHg Body Temperature 98.2 F Height 61 inches 5'1" Weight 175.00 lb BMI (Body Mass Index) 33.1 kg/m2 BSA (Body Surface Area) 1.78 m2 [place] body weight in kilograms 48 kg O2 % BldC Oximetry 95 % 09/22/2018 9:25am BP Systolic Sitting Left Arm 118 mmHg BP Diastolic Sitting Left Arm 72 mmHg Heart Rate 82 /min Respiratory Rate 18 /min Height 60.75 inches 5'0.75" Weight 175.00 lb BMI (Body Mass Index) 33.3 kg/m2 BSA (Body Surface Area) 1.78 m2 [place] body weight in kilograms 47 kg 09/01/2018 4:55pm BP Systolic Sitting Left Arm 101 mmHg BP Diastolic Sitting Left Arm 76 mmHg Heart Rate 74 /min Respiratory Rate 18 /min Height 60.75 inches 5'0.75" Weight 175.00 lb BMI (Body Mass Index) 33.3 kg/m2 BSA (Body Surface Area) 1.78 m2 [place] body weight in kilograms 47 kg O2 % BldC Oximetry 96 % 07/01/2018 1:56pm BP Systolic 104 mmHg BP Diastolic 68 mmHg Body Temperature 98.0 F Heart Rate 84 /min Respiratory Rate 18 /min Height 60.75 inches 5'0.75" Weight 178.00 lb BMI (Body Mass Index) 33.9 kg/m2 BSA (Body Surface Area) 1.79 m2 [place] body weight in kilograms 47 kg O2 % BldC Oximetry 96 % 05/26/2018 12:55pm BP Systolic Sitting Left Arm 114 mmHg BP Diastolic Sitting Left Arm 72 mmHg Body Temperature 98.7 F Heart Rate 71 /min Height 60.75 inches 5'0.75" Weight 176.00 lb BMI (Body Mass Index) 33.5 kg/m2 BSA (Body Surface Area) 1.78 m2 [place] body weight in kilograms 47 kg O2 [...] Date Facility Test Result H/L Range Note Xray 10/23/2018 [facility] - Orthopedic RMP, Foot, LT, Ap, < pending> [address] lat & oblique ([address] [place] [address] view) [phone] RMP, Knee, LT, Ap, lat & sunrise (3 view) <pending> Laboratory test finding 09/28/2018 [facility] Amylase <pending> [address] [place] [address] [phone] Lipase <pending> Pancreatic Elastase (Pe-1) > 500.0 ug/g >200 2 Laboratory test 09/24/2018 [facility] C1 Esterase <pending> finding [address] [facility] [place] [address] [phone] C1 Esterase Inhibit Total <pending> Porphobilinogen,QN,Random Urin 0.6 mg/L 0.0-2.0 3 Ala,Delta,Random Urine 6.5 mg/L High 0.0-5.4 4 Laboratory test 09/24/2018 [facility] C4 Function <pending> 5 finding [address] [place] [address] [phone] Comprehensive 09/24/2018 [facility] Glucose 71 mg/dL Low 74-106 Metabolic Panel [address] [place] [address] [phone] BUN 19 mg/dL High 7-18 Creatinine 0.8 [...] U/L N 45-117 Laboratory test finding 09/24/2018 [facility] Amylase 161 U/L High 25-115 7 [address] [place], [place] [address] [phone] Lipase 1128 U/L High 56-289 8 LDL Cholesterol Profile 09/24/2018 [facility] Cholesterol 181 mg/dL <200 9 [address] [place], [place] [id number] [phone] Triglycerides 91 mg/dL <150 10 HDL Cholesterol 55 mg/dL >40 11 LDL-Cholesterol 108 mg/dL < 100 12 Laboratory test 09/24/2018 [facility] Complement C4, 34 mg/dL 14-44 finding [address] [place], [place] [address] [phone] C1 Esterase Inhibitor 22 mg/dL 21-39 C1 Esterase Inhibitor Function 94 %meanno . 13 Basic Metabolic Panel 08/12/2018 [facility] Glucose 90 mg/dL N 74-106 14 [address] [place], [place] [address] [phone] BUN 16 mg/dL N 7-18 Creatinine 1.0 mg/dL N 0.6-1.3 Glom Filtration Rate, Estimate >60 mL/min >60 If >60 mL/min >60 15 BUN/Creat 16.0 ratio Sodium 141 mmol/L N 136-145 Potassium 3.8 mmol/L N 3.5-5.1 Chloride 107 mmol/L N 98-107 Carbon Dioxide 28 mmol/L N 21-32 Anion Gap 6 mEq/L Low 8-16 Calcium 8.5 mg/dL N 8.5-10.1 Laboratory test 07/01/[address] [facility] [address] Thyroid Stim 1.52 uIU/mL N 0.30-4.20 16 finding [address] [place] [address] [phone] 1 R93.3, R10.11 2 INFCE Result Units: ug Elast./g Severe Pancreatic Insufficiency: <100 Moderate Pancreatic Insufficiency: 100 - 200 Normal: >200 Performed at: [address] [id number] Tenant Relations Coordinator: Waylon Vigil MD, Phone: [phone] 3 This test was developed and its performance characteristics determined by [employer]. It has not been cleared or approved by the Food and Drug Administration. 4 This test was developed and its performance characteristics determined by [employer]. It has not been cleared or approved by the Food and Drug Administration. Performed at: [facility] [address] [id number] Tenant Relations Coordinator: Waylon Vigil MD, Phone: [phone] 5 R10.11 6 Note: Persistent reduction for [...] 7 CALLED LIPASE TO KATLIN Euceda AT 1221 09/24/18 by [email or web address] 8 CALLED LIPASE TO KATLIN Euceda AT 1221 09/24/18 by [email or web address] 9 Reference Guidelines*: Desirable: ........... [...] 67 Normal >67 Performed at: - [facility] [address] [id number] Tenant Relations Coordinator: Whitney Jerome MD, Phone: [phone] Performed at: - [facility] [address] [id number] Tenant Relations Coordinator: Waylon Vigil MD, Phone: [phone] 14 R10.11 RIGHT UPEPR QUAD PAIN 15 [...] R63.5 Procedures Date Code Description Status 10/23/2018 14125 Radiology, Foot, Complete-3 Views Completed 10/23/2018 15627 Radiology, Knee 3 Views Completed 10/23/201873777 Asp./Injection major joint Completed 06/30/2017 [id number] Mammogram Completed 12/07/2014 Injection:Tendon Sheath,Lig. Cyst Completed 11/17/2014 89974 Radiology, Foot, Complete-3 Views Completed 11/17/2014 81925 Radiology, Foot, Complete-3 Views Completed 06/16/2012 58368 EKG Interpretation And Report Only Completed 01/08/2012 [id number] Mammogram Completed 11/16/2010 [id number] Mammogram Completed Encounters Type Date Location Provider Dx Diagnosis Office Visit 09/22/2018 [facility] Aleksandra, L30.9 Dermatitis, 10:[address] Rupinder, deionified ACADEMIC SERVICES COORDINATOR D48.5 Neoplasm of uncertain behavior of skin Office Visit 09/01/2018 4:45p GI Dylan Salmeron MD R93.3 Abnormal findings on dx imaging of prt digestive tract R10.11 Right upper quadrant pain Z80.0 Family history of malignant neoplasm of digestive organs Office Visit 07/01/2018 2:00p [facility] Sonya Lawson, R63.5 Abnormal weight [facility] ACADEMIC SERVICES COORDINATOR gain R05 Cough K21.9 Gastro-esophageal reflux disease without esophagitis J32.9 Chronic sinusitis, unspecified R10.11 Right upper quadrant pain Office Visit 12/07/2014 10:00a Orthopaedic Office Selene Gurrola 719.[address] Ankle & Foot 728.71 Fibromatosis Plantar Fascia Office Visit 11/17/2014 2:15p Orthopaedic Office Selene Gurrola 719.47 [address] S., [facility] Ankle & Foot 715.17 Osteoarthrosis Localized Prim Ankle & Foot Office Visit 10/22/2012 10:00a Surgical Office Callum Panchal MD 611.71 Mastodynia Office Visit 04/22/2012 11:00a Surgical Office Callum Panchal MD 611.71 Mastodynia Office Visit 01/09/2012 10:15a Surgical Office Gal Castanon MD 611.71 Mastodynia 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
[2018-10-31 09:19] VITALS: BP 132/82
--- NOTE | 2018-10-31 09:52 | UC ---
Skin Complaint HPI - HPI Summary HPI Summary: per manager investigations: "Stayed at hotel 2 nights ago. Noticed rash on left shoulder and now has then over body. Itching on body and head. Believes they are bed bugs. " -10/29/18 PM. she has some on her left shoulder, 1 on her back, 1 on her buttocks , scalop is itchy -she feels they are in her ears, up her nose and she ingested them. -denies swelling in her throat and nose. no SOB. no dysphagia. no difficulty breathing - History of Current Complaint Chief Complaint: UCSkin Time Seen by Provider: 10/31/18 09:22 Stated Complaint: SKIN COMPLAINT Hx Last Menstrual Period: 3 days ago Pain Intensity: 0 - Allergy/Home Medications Allergies/Adverse Reactions: Allergies Allergy/AdvReac Type Severity Reaction Status Date / Time gabapentin Allergy Unknown slowed Verified 10/31/18 09:14 responses Penicillins Allergy Unknown Unknown Verified 10/31/18 09:14 Reaction Details Sulfa (Sulfonamide Allergy rapid Verified 10/31/18 09:14 Antibiotics) heartbeat clarithromycin Allergy Wheezing Uncoded 10/31/18 09:14 Green-coated pills AdvReac Vomiting, Uncoded 10/31/18 09:14 chills PMH/Surg Hx/FS Hx/Imm Hx Previously Healthy: Yes - Surgical History Surgical History: Yes Surgery Procedure, Year, and Place: toe surgery. LEFT BREAST BIOPSY - Family History Known Family History: Positive: Cardiac Disease, Hypertension, Diabetes - Social History Alcohol Use: None Substance Use Type: None Smoking Status (MU): Former Smoker Type: Cigarettes Amount Used/How Often: pt unsure Have You Smoked in the Last Year: Yes Household Exposure Type: Cigarettes Review of Systems All Other Systems Reviewed And Are Negative: Yes Constitutional: Positive: Negative Skin: Positive: Rash Eyes: Positive: Negative ENT: Positive: Negative Respiratory: Positive: Negative Cardiovascular: Positive: Negative Gastrointestinal: Positive: Negative Genitourinary: Positive: Negative Motor: Positive: Negative Neurovascular: Positive: Negative Musculoskeletal: Positive: Negative Neurological: Positive: Negative Psychological: Positive: Negative Is Patient Immunocompromised?: No Physical Exam Triage Information Reviewed: Yes Appearance: Well-Appearing, No Pain Distress, Well-Nourished - somewhat of a vague historian, anxious appearing Vital Signs: Initial Vital Signs Temp 98.4 F 10/31/18 09:10 Pulse 73 05/04/19 09:10 Resp 16 10/31/18 09:10 BP 132/82 10/31/18 09:10 Pulse Ox 99 10/31/18 09:10 Vital Signs Reviewed: Yes Eye Exam: Normal ENT Exam: Normal ENT: Positive: Pharynx normal, TMs normal - mo swelling, no erythema, no bugs seen, Uvula midline - no swelling of lips, tongue. no erythema, swelling or areas of induartion b/l nares. membranes nml.. Negative: Pharyngeal erythema Respiratory Exam: Normal Respiratory: Positive: Lungs clear Cardiovascular Exam: Normal Abdominal Exam: Normal Musculoskeletal Exam: Normal Neurological Exam: Normal Psychological Exam: Normal Skin: Positive: Rashes - left shoulder 10 lesions range from 0.5 cm- quarter size. 1 lesion left low back. 1 lesion left buttock. unable to appreciate any in scalp. -slightly elevated. non-blanching. no erythema surrounding, no dc. no streaks. cool to touch. Course/Dx - Course Course Of Treatment: no e/o infection -? bed bug bites -wash linens/clothes hotw ater - instructions priinted -ER 911 with any SOB, swelling in lips,tongue throat -no e/o lesions in mouth, ears or nose. -treat sx of pruritis w/ hydrocrtisone cream. - Differential Diagnoses - Skin Complaint Differential Diagnoses: Cellulitis, Eczema, Scabies - Diagnoses Provider Diagnosis: Dermatitis Discharge - Sign-Out/Discharge Documenting (check all that apply): Patient Departure All imaging exams completed and their final reports reviewed: No Studies - Discharge Plan Condition: Stable Disposition: HOME Prescriptions: Hydrocortisone 1% CREAM(NF) 1 applic TOPICAL TID PRN #7 applic PRN Reason: Itching Patient Education Materials: Bed Bugs (ED) Referrals: Sonya Lawson NP [Primary Care Provider] - 6 Days Additional Instructions: The hydrocortisone cream will help the itching. - Billing Disposition and Condition Condition: STABLE Disposition: Home
== END 2018-10-31 10:03 | disposition home or self-care (01) ==
LOC: UCCORT 08:55
DX: L30.9 Dermatitis, unspecified (principal); Z88.1 Allergy status to other antibiotic agents; Z88.0 Allergy status to penicillin; Z88.2 Allergy status to sulfonamides; Z88.8 Allergy status to other drugs, medicaments and biological substances; Z87.891 Personal history of nicotine dependence
CPT/HCPCS: 99212; G0463

== ENCOUNTER 2019-06-24 09:16 | Emergency (ER) | payer MEDICAID, MEDICARE, OTHER ==
[2019-06-24 10:07] VITALS: BP 129/83
--- NOTE | 2019-06-24 10:47 | UC ---
Respiratory Complaint HPI - HPI Summary HPI Summary: 49 yo female with a two plus week history of nasal congestion and post nasal drip as well as productive cough and wheezing no f/c + right trapezius pain and tenderness patient states she can tolerate and does well with augmentin - History of Current Complaint Chief Complaint: UCGeneralIllness Stated Complaint: SINUS COMPLAINT,CHEST CONGESTION Time Seen by Provider: 06/24/19 10:13 Hx Obtained From: Patient Hx Last Menstrual Period: 06/03/19 Onset/Duration: Gradual Onset, Lasting Weeks Timing: Constant Severity Initially: Mild Severity Currently: Moderate Pain Intensity: 7 Pain Scale Used: 0-10 Numeric Character: Cough: Productive Aggravating Factors: Nothing Associated Signs And Symptoms: Positive: Wheezing, Nasal Congestion, Sinus Discomfort - Allergies/Home Medications Allergies/Adverse Reactions: Allergies Allergy/AdvReac Type Severity Reaction Status Date / Time gabapentin Allergy Unknown slowed Verified 06/24/19 09:59 responses Penicillins Allergy Unknown Unknown Verified 06/24/19 09:59 Reaction Details Sulfa (Sulfonamide Allergy rapid Verified 06/24/19 09:59 Antibiotics) heartbeat clarithromycin Allergy Wheezing Uncoded 06/24/19 09:59 Green-coated pills AdvReac Vomiting, Uncoded 06/24/19 09:59 chills PMH/Surg Hx/FS Hx/Imm Hx Previously Healthy: Yes Respiratory History: Asthma Other Neurological History: TBI - Surgical History Surgical History: Yes Surgery Procedure, Year, and Place: toe surgery. LEFT BREAST BIOPSY. stomach biopsy 12/2018 - Family History Known Family History: Positive: Cardiac Disease, Hypertension, Diabetes - Social History Alcohol Use: None Substance Use Type: None Smoking Status (MU): Never Smoked Tobacco Type: Cigarettes Amount Used/How Often: pt unsure Have You Smoked in the Last Year: Yes Household Exposure Type: Cigarettes Review of Systems All Other Systems Reviewed And Are Negative: Yes Constitutional: Positive: Negative Skin: Positive: Negative Eyes: Positive: Negative ENT: Positive: Nasal Discharge, Sinus Congestion, Sinus Pain/Tenderness Respiratory: Positive: Cough Cardiovascular: Positive: Negative Gastrointestinal: Positive: Negative Genitourinary: Positive: Negative Motor: Positive: Negative Neurovascular: Positive: Negative Musculoskeletal: Positive: Negative Neurological: Positive: Negative Psychological: Positive: Negative Physical Exam Triage Information Reviewed: Yes Appearance: Well-Appearing, No Pain Distress, Well-Nourished Vital Signs: Initial Vital Signs Temp 98.3 F 06/24/19 09:59 Pulse 80 06/24/19 09:59 Resp 16 06/24/19 09:59 BP 129/83 06/24/19 09:59 Pulse Ox 98 06/24/19 09:59 Vital Signs Reviewed: Yes Eyes: Positive: Conjunctiva Clear ENT: Positive: Hearing grossly normal, Pharynx normal, Nasal congestion, Nasal drainage, TMs normal, Sinus tenderness, Uvula midline. Negative: Tonsillar swelling, Tonsillar exudate, Trismus, Muffled voice, Hoarse voice Neck: Positive: Supple, Nontender, No Lymphadenopathy Respiratory: Positive: No respiratory distress, No accessory muscle use, Respiratory distress, Other: - bronchospastic cough and wheezing with forced expiration Cardiovascular: Positive: RRR, No Murmur Musculoskeletal: Positive: ROM Intact, No Edema Neurological: Positive: Alert Psychological Exam: Normal Skin Exam: Normal Diagnostics - Radiology No standard instances Radiology Interpretation Completed By: Radiologist Summary of Radiographic Findings: CXR: NAD Respiratory Course/Dx - Course Course Of Treatment: refuses to take steroids - Differential Dx/Diagnosis Provider Diagnosis: Acute bronchitis with bronchospasm, Sinusitis Discharge ED - Sign-Out/Discharge Documenting (check all that apply): Patient Departure All imaging exams completed and their final reports reviewed: Yes - Discharge Plan Condition: Stable Disposition: HOME Prescriptions: Albuterol HFA INHALER* [Ventolin HFA Inhaler*] 2 puff INH QID #1 mdi Amoxicillin/Clavulanate TAB* [Augmentin TAB 875*] 875 mg PO BID #14 tab guaiFENesin ER TAB [Mucinex*] 1,200 mg PO BID PRN #40 tab.er PRN Reason: Cough Patient Education Materials: Acute Bronchitis (ED) Additional Instructions: see your MD next week for recheck to ER for new or worsening symptoms - Billing Disposition and Condition Condition: STABLE Disposition: Home
== END 2019-06-24 11:28 | disposition home or self-care (01) ==
LOC: UCCORT 09:16
DX: J20.9 Acute bronchitis, unspecified (principal); J45.909 Unspecified asthma, uncomplicated; J32.9 Chronic sinusitis, unspecified; Z88.0 Allergy status to penicillin; Z88.8 Allergy status to other drugs, medicaments and biological substances; Z88.2 Allergy status to sulfonamides; Z88.1 Allergy status to other antibiotic agents
CPT/HCPCS: 71046; 99212; G0463

== ENCOUNTER 2019-07-01 09:05 | Emergency (ER) | payer MEDICARE, OTHER ==
[2019-07-01 09:40] VITALS: BP 127/82
--- NOTE | 2019-07-01 10:10 | UC ---
Skin Complaint HPI - HPI Summary HPI Summary: Patient is a 49yo female presenting with c/o "itching all over." Patient unable to say how long. States she "sees very tiny scabs all over her body." Patient describes itching on her arms, fingers, and scalp. Also notes "a scab on her butt" that she took valtrex for." She states she thinks she is "picking things out of her skin" and "is concerned for scabies or chiggers." Also is concerned for "skin allergies or infection." Denies known allergies. Denies change in soaps, detergents, orther products, and foods.Denies any erythema or warmth. Denies drainage or bleeding. Patient denies fever and chills. Denies any PMH. Denies daily medications. Patient with flight of ideas and often does not answer questions being asked. - History of Current Complaint Chief Complaint: LIZETTEkin Stated Complaint: SKIN ISSUES Hx Obtained From: Patient Hx Last Menstrual Period: 06/03/19 Pain Intensity: 0 - Allergy/Home Medications Allergies/Adverse Reactions: Allergies Allergy/AdvReac Type Severity Reaction Status Date / Time gabapentin Allergy Unknown slowed Verified 07/01/19 09:18 responses Penicillins Allergy Unknown Unknown Verified 07/01/19 09:18 Reaction Details Sulfa (Sulfonamide Allergy rapid Verified 07/01/19 09:18 Antibiotics) heartbeat clarithromycin Allergy Wheezing Uncoded 07/01/19 09:18 Green-coated pills AdvReac Vomiting, Uncoded 07/01/19 09:18 chills PMH/Surg Hx/FS Hx/Imm Hx - Surgical History Surgical History: Yes Surgery Procedure, Year, and Place: toe surgery. LEFT BREAST BIOPSY. stomach biopsy 12/2018 - Family History Known Family History: Positive: Cardiac Disease, Hypertension, Diabetes - Social History Alcohol Use: Rare Substance Use Type: Excessive Caffeine Smoking Status (MU): Never Smoked Tobacco Type: Cigarettes Amount Used/How Often: pt unsure Have You Smoked in the Last Year: Yes Household Exposure Type: Cigarettes Review of Systems All Other Systems Reviewed And Are Negative: No Constitutional: Positive: Negative Skin: Positive: Other - pururitic skin. Negative: Rash ENT: Positive: Negative Respiratory: Positive: Negative Cardiovascular: Positive: Negative Gastrointestinal: Positive: Negative Musculoskeletal: Positive: Negative Neurological: Positive: Negative Physical Exam Triage Information Reviewed: Yes Appearance: Well-Appearing, No Pain Distress, Well-Nourished Vital Signs: Initial Vital Signs Temp 98.4 F 07/01/19 09:23 Pulse 74 07/01/19 09:23 Resp 18 07/01/19 09:23 BP 127/82 07/01/19 09:23 Pulse Ox 97 07/01/19 09:23 Vital Signs Reviewed: Yes Eyes: Positive: Conjunctiva Clear ENT: Positive: Hearing grossly normal Neck: Positive: Supple Respiratory Exam: Normal Respiratory: Positive: Lungs clear, Normal breath sounds, No respiratory distress Cardiovascular Exam: Normal Cardiovascular: Positive: RRR Neurological: Positive: Alert Psychological: Positive: Other: - flat affect, does not make eye contact. flight of ideas. unable to answer questions at times, even if asked twice Skin: Positive: Other - small pinpoint scabs in clusters consistent with scratching pattern. no live, scabies, or lesions noted. no rashes. no erythema, bleeding, or drainage Course/Dx - Course Course Of Treatment: Patient presenting with pruritic skin "all over" and voices concern for scabies , allergies, or infection. No obvious mites, lesions, or rashes noted on skin. I treated with elimite for possible scabies. I instructed the patient to follow up with dermatology or her pcp if symptoms persist. Patient voiced understanding and agreed with treatment plan. - Differential Diagnoses - Skin Complaint Differential Diagnoses: Head Lice, Scabies, Urticaria - Diagnoses Provider Diagnosis: Pruritus of skin Discharge ED - Sign-Out/Discharge Documenting (check all that apply): Patient Departure All imaging exams completed and their final reports reviewed: No Studies - Discharge Plan Condition: Stable Disposition: HOME Prescriptions: Permethrin [Elimite] 5 % EX ONCE #1 cre Patient Education Materials: Itchy Skin (ED) Referrals: Olu Galeas MD [Medical Doctor] - If Needed [facility] [Outside] - If Needed Additional Instructions: As discussed, it is unclear what is causing your itching. Use the cream as prescribed to you to treat possible scabies. Itching can also be caused by dry skin, so be sure to keep your skin moisturized. Follow up with your primary care provider or the dermatology referral listed below if your symptoms persist. - Billing Disposition and Condition Condition: STABLE Disposition: Home
== END 2019-07-01 10:45 | disposition home or self-care (01) ==
LOC: UCCORT 09:05
DX: L29.8 Other pruritus (principal); Z88.8 Allergy status to other drugs, medicaments and biological substances; Z88.0 Allergy status to penicillin; Z88.2 Allergy status to sulfonamides; Z88.1 Allergy status to other antibiotic agents
CPT/HCPCS: 99212; G0463